=== PATIENT | female | born 1945 | race Caucasian/White ===

== ENCOUNTER → 2017-06-18 | Outpatient (CLI) | payer MEDICARE, OTHER ==
[~2017-06-18] MED LIST: REGADENOSON 0.4 MG/5 ML SYRINGE IV ONE
--- NOTE | 2017-06-18 11:28 | NM ---
EXAMINATION TYPE: NM stress lexiscan cardiolite DATE OF EXAM: 06/18/2017 COMPARISON: NONE HISTORY: I 10, hypertension TECHNIQUE: After the intravenous administration of 10.12 mCi Tc 99m Sestamibi - Cardiolite resting S PECT images acquired 45 minutes post injection. The patient received 0.4mg Lexiscan, 23.7 mCi Tc 99m Sestamibi - Stress images obtained [address] injection FINDINGS: Review of stress and rest SPECT images demonstrates some decreased uptake along the anterior wall on stress or rest images, some decreased uptake is noted along the septum towards the apex more so on st ress than on rest images. Gated analysis shows normal wall motion with an estimated left ventricular ejection fraction of 56 %. 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 Difficult to exclude natalie or infarct. A Yellow level critical message alert has been initiated for Jairon Brenner MD via the [employer] Critical Results System on 06/18/2017 11:25 AM. This message alert has been sent to Jairon Brenner MD via the preferences provided by the clinician for the receipt of Radiology Critical Findings. Message ID [id number].
--- NOTE | 2017-06-22 11:15 | EST ---
- Stress Test Note Stress Test Results/Findings: Exam Performed: NM stress lexiscan cardiolite Exam Date: 06/18/17 Reason for Exam: HTN Height: 5 ft 2 in Weight: 85.275 kg Protocol: Missy Scan Stage: na Duration of Exercise: na Resting Heart Rate: 61 Resting Blood Pressure: 109/53 Maximum Achieved Heart Rate: 88 Maximum Achieved Blood Pressure: 105/53 85% PMHR: na 100% PMHR: na METS: na Technologist Comment: Stress Test Results/Findings: This 71-year-old female is being tested for symptoms of chest pain and shortness of breath and also palpitations. Patient has history of hypertension , family history and smoking history. Based on EKG showed sinus rhythm with poor when necessary 20. QRS duration. A standard dose of Lexiscan was infused EKG showed nonspecific changes. Patient did not express any chest pain. Final impression #1. Negative Lexiscan stress test #2. Report of the nuclear images to be given by the radiologist. CHRIS
== END | disposition home or self-care (01) ==
LOC: RADNMMAIN 07:27
PROVIDERS: ATTEND Internal Medicine
DX: I10 Essential (primary) hypertension (principal)
CPT/HCPCS: 93017; 78452; A9500; J2785

== ENCOUNTER → 2017-06-23 | Outpatient (CLI) | payer MEDICARE, OTHER ==
[2017-06-23 11:53] LABS: Basophils % (A) 1 %; Eosinophils # (A) 0.1 k/uL (0-0.7); Eosinophils % (A) 2 %; HCT 44.9 % (34.0-46.0); Lymphocytes % (A) 19 %; MCH 30.5 pg (25.0-35.0); MCHC 33.5 g/dL (31.0-37.0); MCV 91.1 fL (80.0-100.0); Mean Platelet Volume 6.7; Monocytes # (A) 0.4 k/uL (0-1.0); Monocytes % (A) 7 %; Neutrophils # (A) 3.8 k/uL (1.3-7.7); Neutrophils % (A) 70 %; Platelet Count 253 k/uL (150-450); RBC 4.94 m/uL (3.80-5.40); RDW 12.5 % (11.5-15.5); WBC 5.4 k/uL (3.8-10.6)
[2017-06-23 12:10] LABS: Anion Gap 11 mmol/L; Blood Urea Nitrogen 14 mg/dL (7-17); Carbon Dioxide 33 mmol/L (22-30); Chloride 93 mmol/L (98-107); Potassium 3.1 mmol/L (3.5-5.1); Sodium 137 mmol/L (137-145)
== END | disposition home or self-care (01) ==
LOC: LABPAT 11:02
PROVIDERS: ATTEND Internal Medicine Cardiovascular Disease
DX: Z01.812 Encounter for preprocedural laboratory examination (principal); R07.9 Chest pain, unspecified
CPT/HCPCS: 36415; 80051; 82565; 84520; 85025; 85027

== ENCOUNTER 2017-06-25 07:23 | Day surgery (SDC) | payer MEDICARE, OTHER ==
[~2017-06-25 07:23] MED LIST changes: +ALPRAZolam 0.25 MG TAB PO PRN; +ALPRAZolam 0.5 MG TAB PO PRN; +ASPIRIN 325 MG TAB PO STA; +ATORVASTATIN 80 MG TAB PO STA; +NITROGLYCERIN SL TABS 0.4 MG TAB SUBLINGUAL PRN; -REGADENOSON 0.4 MG/5 ML SYRINGE IV ONE; +SODIUM CHLORIDE 0.9% 1,000 ML in EMPTY BAG 1 BAG IV ONE
[2017-06-25] MEDS ORDERED: ASPIRIN 81 MG ONE (07:45)
[2017-06-25 08:01] VITALS: TEMP 97.8
[2017-06-25] MEDS ORDERED: LIDOCAINE 2% INJ 20 MG/ML (20 ML MDV) ONE ×2 (08:41→08:42)
[2017-06-25] MEDS ORDERED: MIDAZOLAM 2 MG/2 ML VIAL ONE (08:41)
[2017-06-25] MEDS ORDERED: fentaNYL (PF) 50 MCG/ML 2 ML AMP ONE (08:42)
[2017-06-25] MEDS ORDERED: HEPARIN SODIUM 1,000 UN/ML (10ML VL) ONE (08:42)
[2017-06-25] MEDS ORDERED: fentaNYL (PF) 50 MCG/ML 2 ML AMP IV ONE (09:15)
[2017-06-25] MEDS ORDERED: MIDAZOLAM 2 MG/2 ML VIAL IV ONE (09:16)
[2017-06-25] MEDS: POTASSIUM CHLORIDE 10 MEQ in SODIUM CHLORIDE 0.9% 100 ML IVPB SCH ×2 (09:23→10:30)
[2017-06-25] MEDS ORDERED: LIDOCAINE 2% INJ 20 MG/ML SQ ONE (09:24)
[2017-06-25] MEDS ORDERED: VERAPAMIL SYRINGE (5 MG/10 ML) INTRAARTER ONE (09:28)
[2017-06-25] MEDS ORDERED: HEPARIN SODIUM 1,000 UN/ML (10ML VL) IV ONE (09:29)
[2017-06-25] MEDS ORDERED: IOHEXOL 350 MG/ML 125ML BOTTLE INJ ONE (09:43)
[2017-06-25] MEDS ORDERED: RX INFO: IV CONTRAST WAS GIVEN 1 EACH MISC MISCELLANE PRN (09:59)
[2017-06-25] MEDS ORDERED: SODIUM CHLORIDE 0.9% 1,000 ML IV SCH (10:00)
--- NOTE | 2017-06-25 10:09 | P.PCN ---
Date of Procedure: 06/25/17 Preoperative Diagnosis: Chest pain and positive stress test Postoperative Diagnosis: Mild diffuse coronary artery disease without any critical lesions Procedure(s) Performed: Left heart catheterization without left ventriculography Description of Procedure: HISTORY: This is a 71-year-old female with history of hypertension, family history of ischemic heart disease and also history of smoking who has been having intermittent chest pain. Patient had nuclear stress test that was reported as showing possible ischemia in the anterior wall and possible previous VT. Patient is advised to have a cardiac catheterization for definitive diagnosis. CONSENT:I have discussed the risks, benefits and alternative therapies for the above-mentioned procedure and for both sedation/analgesia as well as necessary blood product administration, if indicated, as they pertain to this patient. The patient has indicated understanding and acceptance of the risks and procedures discussed. PROCEDURE: Patient was brought to the lab in a fasting state. Patient was given some IV sedation. The right wrist is infiltrated with lidocaine and right radial artery was entered using Seldinger technique. A 6-Bengali catheter was left in place and selective coronary arteriography was performed. Patient tolerated the procedure well. TR band was applied for hemostasis. No immediate complications were noted and patient was transferred to [facility] in a stable condition Conscious Sedation: Versed 1 mg Fentanyl 50 g Duration 28minutes HEMODYNAMICS: The aortic pressure is 130/70. Left ankle end-diastolic pressures 5-10. There was no gradient across the aortic valve SELECTIVE CORONARY ARTERIOGRAPHY: LEFT MAIN: Short and divides into left anterior descending and the left circumflex coronary artery immediately THE LEFT ANTERIOR DESCENDING CORONARY ARTERY: This is a moderate caliber vessel with calcification and mild stenosis in the midportion with 30-40% stenosis. Rest of the vessel is free of occlusive disease THE LEFT CIRCUMFLEX AND IS CORONARY ARTERY:. This is a moderate caliber vessel giving rise to good-sized OM branch which has 2 divisions. The circumflex coronary artery has mild plaque noted any significant focal lesions THE RIGHT CORONARY ARTERY: Right coronary artery is also good caliber vessel and dominant. It shows mild calcification and mild intimal plaque in the midportion without any critical lesions LEFT VENTRICULOGRAPHY: Not performed FINAL IMPRESSION:. Mild diffuse coronary artery disease with calcification in the 30-40% lesion in the mid LAD. No critical lesions were noted PLAN:. Maximal medical therapy and risk factor modification PROGNOSIS: Good
[2017-06-25] MEDS ORDERED: POTASSIUM CHLORIDE ER 20 MEQ TAB.ER PO STA (10:11)
[2017-06-25 10:58] VITALS: RESP 18
[2017-06-25 10:59] VITALS: BP 129/79; PULSE 62
== END 2017-06-25 14:05 | disposition home or self-care (01) ==
LOC: CATHCVL 07:23
PROVIDERS: ATTEND Internal Medicine Cardiovascular Disease
DX: R07.9 Chest pain, unspecified (principal); R94.39 Abnormal result of other cardiovascular function study; I25.10 Atherosclerotic heart disease of native coronary artery without angina pectoris; I10 Essential (primary) hypertension; J45.909 Unspecified asthma, uncomplicated; Z82.49 Family history of ischemic heart disease and other diseases of the circulatory system; Z88.5 Allergy status to narcotic agent; Z87.891 Personal history of nicotine dependence; Z79.82 Long term (current) use of aspirin; Z79.890 Hormone replacement therapy; Z79.899 Other long term (current) drug therapy
CPT/HCPCS: 93458; 84132; C1769 ×3; C1894; J2001; J2250; J3480; J3010; J1644; Q9967

== ENCOUNTER → 2018-11-22 | Outpatient (CLI) | payer MEDICARE, OTHER ==
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
--- NOTE | 2018-11-24 12:21 | MM ---
Reason for exam: screening (asymptomatic). Last mammogram was performed 1 year and 9 months ago. History: Patient history of other cancer. Took hormonal contraceptives for 8 years beginning at age 21. Physical Findings: A clinical breast exam by your physician is recommended on an annual basis and results should be correlated with mammographic findings. MG 3D Screening Mammo W/Cad Bilateral CC and MLO view(s) were taken. Prior study comparison: February 08, 2017, bilateral MG 3d screening mammo w/cad. May 18, 2011, bilateral digital screening mammo w/CAD. There are scattered fibroglandular densities. There is chronic nodularity bilaterally. No significant changes when compared with prior studies. ASSESSMENT: Benign, BI-RAD 2 RECOMMENDATION: Routine screening mammogram of both breasts in 1 year.
== END | disposition home or self-care (01) ==
LOC: RADMAMWWP 14:17
PROVIDERS: ATTEND Internal Medicine
DX: Z12.31 Encounter for screening mammogram for malignant neoplasm of breast (principal); M81.0 Age-related osteoporosis without current pathological fracture
CPT/HCPCS: 77063; 77067; 77080

== ENCOUNTER → 2019-11-16 | Outpatient (CLI) | payer MEDICARE, OTHER ==
--- NOTE | 2019-11-16 11:59 | XR ---
EXAMINATION TYPE: XR chest 2V DATE OF EXAM: 11/16/2019 COMPARISON: NONE TECHNIQUE: PA and lateral views submitted. HISTORY: Shortness of breath FINDINGS: The lungs are clear and there is no pneumothorax, pleural effusion, or focal pneumonia. Calcified g ranuloma in the left midlung suspected. Atherosclerotic changes aorta. There is hypertrophic and dege nerative changes spine. Surgical clips in the abdomen noted. Subsegmental linear changes right lung b ase. IMPRESSION: 1. Findings suggest COPD with right basilar atelectasis favored over pneumonia. 2. There is a 2 small nodules within the left upper lobe the largest measuring 5 mm felt to be most t ypical of granuloma. CT scan of the chest could be obtained for confirmation.
== END | disposition home or self-care (01) ==
LOC: RADXRMAIN 11:15
PROVIDERS: ATTEND Internal Medicine
DX: R91.8 Other nonspecific abnormal finding of lung field (principal); J84.10 Pulmonary fibrosis, unspecified
CPT/HCPCS: 71046

== ENCOUNTER → 2019-11-23 | Outpatient (CLI) | payer MEDICARE, OTHER ==
[~2019-11-23] MED LIST changes: -ALPRAZolam 0.25 MG TAB PO PRN; -ALPRAZolam 0.5 MG TAB PO PRN; -ASPIRIN 325 MG TAB PO STA; -ATORVASTATIN 80 MG TAB PO STA; +DOBUTamine DRIP for NUC MED 500 MG in DEXTROSE/WATER 1 250ML.BAG IV ONE; -NITROGLYCERIN SL TABS 0.4 MG TAB SUBLINGUAL PRN; -SODIUM CHLORIDE 0.9% 1,000 ML in EMPTY BAG 1 BAG IV ONE
--- NOTE | 2019-11-23 13:10 | ECHOS ---
STRESS ECHOCARDIOGRAM LUMASON: Vial INDICATIONS: Chest pain, short of breath. MEDICATIONS: BASELINE HEART RATE: 55 BASELINE BLOOD PRESSURE: 143/65 MAXIMUM HEART RATE: 132 MAXIMUM BLOOD PRESSURE: 161/58 85% MPHR: 123 100% MPHR: 145 METS: MAXIMUM STAGE REACHED: TOTAL EXERCISE TIME: CLINICAL INFORMATION: Baseline EKG shows sinus rhythm with poor R-wave progression. Patient was given intravenous dobutamine over a period of 9 minutes as per protocol, achieving 85% of predicted maximal heart rate without chest pain. At peak dobutamine infusion, there was [address]-segment depression noted in the inferolateral leads. Baseline echo was technically suboptimal secondary to poor echo windows. Contrast was injected and has endocardial visualization. Baseline LV function and wall motion appear normal. Post dobutamine infusion there is normal hyperdynamic response of all segments of myocardium noted. CONCLUSION: 1. Abnormal stress test by EKG criteria. 2. Negative dobutamine echo. MMABYRONL / IJN: [id number] /
== END | disposition home or self-care (01) ==
LOC: RADNMMAIN 08:49
PROVIDERS: ATTEND Internal Medicine
DX: R06.09 Other forms of dyspnea (principal); R94.31 Abnormal electrocardiogram [ECG] [EKG]
CPT/HCPCS: C8930; J1250; Q9950; 93351

== ENCOUNTER → 2020-01-12 | Outpatient (CLI) | payer MEDICARE, OTHER ==
--- NOTE | 2020-01-15 09:43 | MM ---
Reason for exam: screening (asymptomatic). Last mammogram was performed 1 year and 2 months ago. History: Patient has history of other cancer at age 66. Took hormonal contraceptives for 8 years beginning at age 21. Physical Findings: A clinical breast exam by your physician is recommended on an annual basis and results should be correlated with mammographic findings. MG 3D Screening Mammo W/Cad Bilateral CC and MLO view(s) were taken. Prior study comparison: November 22, 2018, bilateral MG 3d screening mammo w/cad. February 08, 2017, bilateral MG 3d screening mammo w/cad. There are scattered fibroglandular densities. There is no discrete abnormality. No significant changes when compared with prior studies. ASSESSMENT: Negative, BI-RAD 1 RECOMMENDATION: Routine screening mammogram of both breasts in 1 year.
== END | disposition home or self-care (01) ==
LOC: RADMAMWWP 09:58
PROVIDERS: ATTEND Internal Medicine
DX: Z12.31 Encounter for screening mammogram for malignant neoplasm of breast (principal)
CPT/HCPCS: 77063; 77067

== ENCOUNTER → 2020-02-19 | Outpatient (CLI) | payer MEDICARE, OTHER | END | disposition home or self-care (01) | LOC: LABWHC1 12:54 | PROVIDERS: ATTEND Internal Medicine | DX: Z03.818 Encounter for observation for suspected exposure to other biological agents ruled out (principal) | CPT/HCPCS: U0003; C9803 ==

== ENCOUNTER 2020-05-15 19:23 | Inpatient (IN) | payer OTHER, MEDICARE ==
[2020-05-15 19:29] LABS: Glucose,Whole Blood 157 mg/dL (75-99)
[2020-05-15] MEDS ORDERED: MORPHINE SULFATE 4 MG/ML SYRINGE IVP STA ×2 (19:41→20:35)
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
[2020-05-15] MEDS ORDERED: ONDANSETRON 4 MG/2 ML VIAL IVP STA (19:45)
[2020-05-15 19:48] LABS: Anisocytosis Slight; Basophils # (A) 0.1 k/uL (0-0.2); Basophils % (A) 1 %; Eosinophils # (A) 0.4 k/uL (0-0.7); Eosinophils % (A) 5 %; HCT 43.9 % (34.0-46.0); HGB 13.5 gm/dL (11.4-16.0); Hypochromasia Marked; Lymphocytes # (A) 1.6 k/uL (1.0-4.8); Lymphocytes % (A) 19 %; MCH 31.4 pg (25.0-35.0); MCHC 30.9 g/dL (31.0-37.0); MCV 101.9 fL (80.0-100.0); Macrocytosis Slight; Mean Platelet Volume 6.7; Monocytes # (A) 0.3 k/uL (0-1.0); Monocytes % (A) 4 %; Neutrophils # (A) 6.2 k/uL (1.3-7.7); Neutrophils % (A) 71 %; Platelet Count 177 k/uL (150-450); Poikilocytosis Moderate; RBC 4.31 m/uL (3.80-5.40); RDW 16.3 % (11.5-15.5); WBC 8.8 k/uL (3.8-10.6)
[2020-05-15 19:58] LABS: ALT 28 U/L (4-34); AST 40 U/L (14-36); African American GFR (CKD) 73 (>60 ml/min/1.73 sqM); Albumin 3.9 g/dL (3.5-5.0); Alcohol <10 mg/dL; Alkaline Phosphatase 92 U/L (38-126); Anion Gap 9 mmol/L; Blood Urea Nitrogen 24 mg/dL (7-17); Calcium 9.3 mg/dL (8.4-10.2); Carbon Dioxide 31 mmol/L (22-30); Chloride 100 mmol/L (98-107); Glucose 123 mg/dL (74-99); Non-African American GFR(CKD) 63 (>60 ml/min/1.73 sqM); Potassium 3.8 mmol/L (3.5-5.1); Sodium 140 mmol/L (137-145); Total Bilirubin 0.8 mg/dL (0.2-1.3); Total Protein 6.7 g/dL (6.3-8.2)
[2020-05-15 20:01] LABS: Prothrombin Time 10.3 sec (9.0-12.0)
[2020-05-15 20:08] LABS: Partial Thromboplastin Time 22.3 sec (22.0-30.0)
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
[2020-05-15] MEDS ORDERED: ACETAMINOPHEN TAB 325 MG TAB PO PRN (21:16)
[2020-05-15] MEDS ORDERED: LORazepam 0.5 MG TAB PO PRN (21:16)
[2020-05-15] MEDS ORDERED: ONDANSETRON 4 MG/2 ML VIAL IVP PRN (21:16)
[2020-05-15] MEDS ORDERED: LORazepam 2 MG/ML INJ IV PRN (21:16)
[2020-05-15] MEDS ORDERED: MORPHINE SULFATE 4 MG/ML SYRINGE IV PRN (21:16)
[2020-05-15] MEDS ORDERED: NALOXONE 0.4 MG/ML 1 ML VIAL IV PRN (21:16)
[2020-05-15] MEDS: PANTOPRAZOLE 40 MG/10 ML VIAL IV SCH (21:31)
[2020-05-15] MEDS: SODIUM CHLORIDE 0.9% 1,000 ML IV SCH (21:31)
[2020-05-15 22:13] LABS: Appearance,Urine Clear (Clear); Bilirubin,Urine Negative (Negative); Blood,Urine Negative (Negative); Color,Urine Light Yellow; Glucose,Urine (UA) Negative (Negative); Ketones,Urine Negative (Negative); Leukocyte Esterase,Urine Negative (Negative); Nitrite,Urine Negative (Negative); Protein,Urine Negative (Negative); Urobilinogen,Urine <2.0 mg/dL (<2.0)
[2020-05-15 22:30] LABS: Amphetamine Screen,Urine Not Detected (NotDetected); Barbiturate Screen,Urine Not Detected (NotDetected); Benzodiazepines Screen,Urine Detected (NotDetected); Cocaine Screen,Urine Not Detected (NotDetected); Methadone Screen, Urine Not Detected (NotDetected); Opiate Screen,Urine Detected (NotDetected); Oxycodone Screen, Urine Not Detected (NotDetected); Phencyclidine Screen,Urine Not Detected (NotDetected); Tricyclic Antidepressant,Urine Not Detected (NotDetected); Urn Cannabinoid Scrn Not Detected (NotDetected)
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
[2020-05-16] MEDS: LEVOTHYROXINE 100 MCG TAB PO SCH (05:47)
[2020-05-16] MEDS ORDERED: HYDROcodone/APAP 7.5-325MG 1 EACH TAB PO PRN (08:16)
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
[2020-05-16] MEDS: ONDANSETRON 4 MG/2 ML VIAL IVP PRN (08:53)
[2020-05-16] MEDS: HYDROcodone/APAP 10-325MG 1 EACH TAB PO PRN ×2 (08:53→16:12)
[2020-05-16] MEDS: ASPIRIN 81 MG PO SCH (09:03)
[2020-05-16] MEDS: POTASSIUM CHLORIDE ER 10 MEQ TAB.ER.PRT PO SCH ×2 (09:04→16:13)
[2020-05-16] MEDS: SERTRALINE 50 MG TAB PO SCH (09:05)
[2020-05-16] MEDS: ENOXAPARIN 40 MG/0.4 ML SYRINGE SQ SCH (09:07)
[2020-05-16] MEDS: PANTOPRAZOLE 40 MG/10 ML VIAL IV SCH (09:08)
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
[2020-05-16] MEDS: MORPHINE SULFATE 4 MG/ML SYRINGE IV PRN ×2 (11:04→17:42)
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
[2020-05-16] MEDS: ALPRAZolam 0.5 MG TAB PO SCH (23:25)
[2020-05-16] MEDS: SODIUM CHLORIDE 0.9% 1,000 ML IV SCH (23:26)
[2020-05-17] MEDS: POTASSIUM CHLORIDE ER 10 MEQ TAB.ER.PRT PO SCH ×4 (00:15→20:58)
[2020-05-17] MEDS: KETOROLAC 15 MG/ML 1 ML VIAL IVP PRN ×2 (01:55→09:32)
[2020-05-17] MEDS: HYDROcodone/APAP 10-325MG 1 EACH TAB PO PRN ×3 (01:56→19:47)
[2020-05-17] MEDS: LEVOTHYROXINE 75 MCG TAB PO SCH (05:49)
--- NOTE | 2020-05-17 08:08 | P.PN ---
Subjective Progress Note Date: 05/17/20 Principal diagnosis: Left iliac fracture/right pubic rami fracture/sacral fracture/acetabular avulsion Patient notes moderate pelvic pain. She is requiring oral analgesics. Objective - Vital Signs Vital signs: Vital Signs Temp 97.9 F 05/17/20 06:55 Pulse 72 05/17/20 06:55 Resp 16 05/17/20 06:55 BP 111/62 05/17/20 06:55 Pulse Ox 97 05/17/20 06:55 Intake & Output 05/16/20 05/17/20 05/17/20 18:59 06:59 18:59 Output Total 600 Balance -600 Output: Urine 600 Other: Voiding Method Indwelling Catheter Indwelling Catheter # Voids 400 - Exam Moderate pain with passive motion left hip Tender right pubic rami Homans negative bilaterally Distal neurovascular intact to the lower extremities Pelvis stable to external rotation stress - Constitutional General appearance: Present: mild distress (Alert and oriented 4) - Labs CBC & Chem 7: 05/15/20 19:25 05/15/20 19:25 Assessment and Plan Assessment: Left shoulder fracture/right pubic rami fracture/sacral compression fracture/left acetabular avulsion Plan: Continue analgesia. Encourage mobilization with therapy and a walker. Discontinue Allison. Continue to monitor. Time with Patient: Less than 30
[2020-05-17] MEDS ORDERED: MORPHINE SULFATE 4 MG/ML SYRINGE IVP PRN (08:17)
[2020-05-17] MEDS: ONDANSETRON 4 MG/2 ML VIAL IVP PRN (08:30)
[2020-05-17] MEDS: ASPIRIN 81 MG PO SCH (09:19)
[2020-05-17] MEDS: ENOXAPARIN 40 MG/0.4 ML SYRINGE SQ SCH (09:20)
[2020-05-17] MEDS: PANTOPRAZOLE 40 MG/10 ML VIAL IV SCH (09:21)
[2020-05-17] MEDS: SERTRALINE 50 MG TAB PO SCH (09:22)
[2020-05-17] MEDS ORDERED: polyethylene glycoL 3350 17 GM POWD.PACK PO STA (09:31)
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
[2020-05-17 12:15] LABS: HCT 35.2 % (34.0-46.0); HGB 11.4 gm/dL (11.4-16.0); MCH 32.3 pg (25.0-35.0); MCHC 32.5 g/dL (31.0-37.0); MCV 99.4 fL (80.0-100.0); Mean Platelet Volume 7.5; Platelet Count 119 k/uL (150-450); RBC 3.54 m/uL (3.80-5.40); RDW 13.5 % (11.5-15.5); WBC 6.3 k/uL (3.8-10.6)
[2020-05-17 12:23] LABS: Potassium 3.5 mmol/L (3.5-5.1)
[2020-05-17 12:24] LABS: African American GFR (CKD) >90 (>60 ml/min/1.73 sqM); Anion Gap 4 mmol/L; Blood Urea Nitrogen 15 mg/dL (7-17); Calcium 8.6 mg/dL (8.4-10.2); Carbon Dioxide 31 mmol/L (22-30); Chloride 97 mmol/L (98-107); Glucose 113 mg/dL (74-99); Non-African American GFR(CKD) >90 (>60 ml/min/1.73 sqM); Sodium 132 mmol/L (137-145)
[2020-05-17] MEDS: ALPRAZolam 0.5 MG TAB PO SCH (20:59)
[2020-05-17] MEDS: SODIUM CHLORIDE 0.9% 1,000 ML IV SCH (22:49)
[2020-05-18] MEDS: LEVOTHYROXINE 75 MCG TAB PO SCH (06:05)
[2020-05-18] MEDS: HYDROcodone/APAP 10-325MG 1 EACH TAB PO PRN ×4 (06:08→22:30)
--- NOTE | 2020-05-18 08:14 | P.PN ---
Subjective Progress Note Date: 05/18/20 Principal diagnosis: Right pubic rami/left ischial/left acetabular avulsion fractures Patient notes moderate right-sided pelvic pain. She has ambulated minimally. Objective - Vital Signs Vital signs: Vital Signs Temp 98.5 F 05/18/20 00:12 Pulse 78 05/18/20 00:12 Resp 18 05/18/20 00:12 BP 145/69 05/18/20 00:12 Pulse Ox 98 05/18/20 00:12 Intake & Output 05/17/20 05/18/20 05/18/20 18:59 06:59 18:59 Intake Total 780 Output Total 2200 Balance -1420 Intake: Intake, IV Titration 240 Amount Sodium Chloride 0.9% 1, 240 000 ml @ 20 mls/hr IV . Q24H [facility] Rx#:[id number] Oral 540 Output: Urine 2200 Other: Voiding Method Indwelling Catheter Indwelling Catheter - Exam Mild pain with passive motion left hip Tender right pubic rami Nontender sacroiliac joints and lumbar spine Homans negative bilateral lower extremities Distal neurovascular intact bilateral lower extremities - Constitutional General appearance: Present: no acute distress - Labs CBC & Chem 7: 05/17/20 11:50 05/17/20 11:50 Labs: Abnormal Lab Results - Last 24 Hours (Table) 05/17/20 05/17/20 Range/Units 11:50 11:50 RBC 3.54 L (3.80-5.40) m/uL Plt Count 119 L (150-450) k/uL Sodium 132 L (137-145) mmol/L Chloride 97 L (98-107) mmol/L Carbon Dioxide 31 H (22-30) mmol/L Glucose 113 H (74-99) mg/dL Assessment and Plan Assessment: Left shoulder fracture/right pubic rami fracture/sacral compression fracture /left acetabular avulsion Plan: Continue analgesia. Discontinue [place]. Continue therapy. Discharge planning. She may require subacute rehabilitation. Time with Patient: Less than 30
[2020-05-18] MEDS: KETOROLAC 15 MG/ML 1 ML VIAL IVP PRN ×2 (09:15→16:49)
[2020-05-18] MEDS: hydroCHLOROthiazide 12.5 MG CAP PO SCH (09:16)
[2020-05-18] MEDS: SERTRALINE 50 MG TAB PO SCH (09:16)
[2020-05-18] MEDS: PANTOPRAZOLE 40 MG TABLET PO SCH (09:16)
[2020-05-18] MEDS: POTASSIUM CHLORIDE ER 10 MEQ TAB.ER.PRT PO SCH ×3 (09:16→20:20)
[2020-05-18] MEDS: ENOXAPARIN 40 MG/0.4 ML SYRINGE SQ SCH (09:16)
[2020-05-18] MEDS: SENNOSIDES 8.6 MG TAB PO SCH (09:16)
[2020-05-18] MEDS: LEVOTHYROXINE 100 MCG TAB PO SCH (09:16)
[2020-05-18] MEDS: ASPIRIN 81 MG PO SCH (09:16)
[2020-05-18] MEDS ORDERED: polyethylene glycoL 3350 17 GM POWD.PACK PO STA (09:25)
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
[2020-05-18] MEDS: ALPRAZolam 0.5 MG TAB PO SCH (20:20)
[2020-05-18] MEDS: SODIUM CHLORIDE 0.9% 1,000 ML IV SCH (22:31)
[2020-05-19] MEDS: HYDROcodone/APAP 10-325MG 1 EACH TAB PO PRN ×3 (05:52→19:29)
[2020-05-19] MEDS: SENNOSIDES 8.6 MG TAB PO SCH (08:21)
[2020-05-19] MEDS: hydroCHLOROthiazide 12.5 MG CAP PO SCH (08:21)
[2020-05-19] MEDS: ASPIRIN 81 MG PO SCH (08:21)
[2020-05-19] MEDS: PANTOPRAZOLE 40 MG TABLET PO SCH (08:21)
[2020-05-19] MEDS: ENOXAPARIN 40 MG/0.4 ML SYRINGE SQ SCH (08:21)
[2020-05-19] MEDS: SERTRALINE 50 MG TAB PO SCH (08:21)
[2020-05-19] MEDS: POTASSIUM CHLORIDE ER 10 MEQ TAB.ER.PRT PO SCH ×2 (08:21→15:58)
[2020-05-19] MEDS: KETOROLAC 15 MG/ML 1 ML VIAL IVP PRN (08:23)
[2020-05-19 10:34] LABS: HCT 29.1 % (37.2-46.3); HGB 9.3 g/dL (12.0-15.0); MCH 32.1 pg (27.0-32.0); MCV 100.3 fL (80.0-97.0); Mean Platelet Volume 10.1 fL (9.5-12.2); Platelet Count 133 X 10*3/uL (140-440); RDW 13.4 % (11.5-14.5); WBC 4.53 X 10*3/uL (4.50-10.00)
--- NOTE | 2020-05-19 10:44 | P.PN ---
Subjective Progress Note Date: 05/19/20 Principal diagnosis: Left iliac fracture/right pubic rami fracture/sacral fracture/left hip acetabular avulsion Patient was evaluated today at bedside, she is resting in her hospital chair. She did get up with assistance today and utilize the walker. She notes improvement in her overall symptoms. Her biggest complaint at this time she hasn't had a bowel movement. I did discuss this with both nursing and internal medicine doctor today, they're working on this. Currently she denies any headaches, lightheadedness, chest pain, shortness of breath, nausea vomiting, fever or chills. Objective - Vital Signs Vital signs: Vital Signs Temp 98.3 F 05/19/20 07:53 Pulse 67 05/19/20 07:53 Resp 16 05/19/20 07:53 BP 111/51 05/19/20 07:53 Pulse Ox 94 L 05/19/20 07:53 Intake & Output 05/18/20 05/19/20 05/19/20 18:59 06:59 18:59 Intake Total 100 Output Total 2250 Balance -2250 100 Intake: Oral 100 Output: Urine 2250 Uretheral (Allison) 600 Other: Voiding Method Indwelling Catheter Bedside Commode Bedside Commode # Voids 1 1 - Exam Mild pain with passive motion left hip Tender right pubic rami Nontender sacroiliac joints and lumbar spine Homans negative bilateral lower extremities Distal neurovascular intact bilateral lower extremities - Labs CBC & Chem 7: 05/19/20 06:23 05/17/20 11:50 Labs: Abnormal Lab Results - Last 24 Hours (Table) 05/19/20 Range/Units 06:23 RBC 2.90 L (4.10-5.20) X 10*6/uL Hgb 9.3 L (12.0-15.0) g/dL Hct 29.1 L (37.2-46.3) % MCV 100.3 H (80.0-97.0) fL MCH 32.1 H (27.0-32.0) pg Plt Count 133 L (140-440) X 10*3/uL Assessment and Plan Assessment: Left iliac fracture Right pubic rami fracture Sacral fracture Left hip acetabular avulsion Plan: Pain control, continue with current regimen Continue physical therapy evaluation, recommending walker at all times with ambulation Patient is feeling much better after removal of the urinary catheter, I imagine she'll continue fill better after a bowel movement, we will continue to monitor this Medical recommendations GI and DVT prophylaxis per medical team Hopeful discharge to rehab tomorrow Time with Patient: Less than 30
[2020-05-19 11:03] LABS: African American GFR (CKD) 109.7 (60.0-200.0); Anion Gap 3.6 mmol/L (4.00-12.00); Calcium 8.4 mg/dL (8.7-10.3); Carbon Dioxide 32.4 mmol/L (21.6-31.8); Magnesium 1.7 mg/dL (1.5-2.4); Non-African American GFR(CKD) 94.7 (60.0-200.0); Potassium 4.2 mmol/L (3.5-5.5)
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
--- NOTE | 2020-05-19 12:19 | CT ---
1 lines and proximal EXAMINATION TYPE: CT abdomen pelvis wo con DATE OF EXAM: 05/19/2020 COMPARISON: 05/15/2020 00 HISTORY: Hgb decrease CT DLP: 687.7 mGycm Examination of the solid and hollow viscera is limited given the lack of contrast. FINDINGS: LUNG BASES: No evidence for nodule. No evidence for infiltrate. LIVER/GB: The gallbladder is unremarkable. No space-occupying hepatic lesion. PANCREAS: No pancreatic mass identified. No inflammatory process seen. SPLEEN: No evidence for splenomegaly. No intrasplenic lesions seen. ADRENALS: No adrenal nodules identified. No evidence for thickening. KIDNEYS: No evidence for renal mass. No nephrolithiasis. No hydronephrosis. There is urinary bladder wall thickening with the a focus of air identified within the anterior urinary bladder which may be f rom recent catheterization. Correlate clinically. BOWEL: Appendix has a normal appearance. No evidence of bowel obstruction. No inflammatory process. I ncreased attenuation within the small bowel mesentery unchanged from prior study may reflect a mesent lala panniculitis. Lymph nodes: No evidence for adenopathy greater than 1 cm. Abdominal aorta: Atheromatous changes seen. No evidence for aneurysm. Genital organs: No significant abnormality. Other: Again noted is mildly comminuted fracture involving the right superior pubic ramus and loss pu bis. There is fracture of the left inferior pubic ramus as well as of the left ischium extending into the anterior acetabular lip. Small chip fracture of the left mid sacrum is redemonstrated. No new fr actures identified at this time. No evidence for lumbar fracture. Mild presacral edema is seen. IMPRESSION: 1. Pelvic fractures are redemonstrated. No new fractures seen. Intra-axial evidence for hematoma alth ough there is mild presacral edema which has occurred in the interval. 2. Urinary bladder wall thickening. See above.
[2020-05-19 14:00] LABS: HCT 29.7 % (34.0-46.0); MCH 32.9 pg (25.0-35.0); MCHC 33.5 g/dL (31.0-37.0); MCV 98.3 fL (80.0-100.0); Platelet Count 132 k/uL (150-450); RBC 3.02 m/uL (3.80-5.40); RDW 13.7 % (11.5-15.5); WBC 4.6 k/uL (3.8-10.6)
[2020-05-19] MEDS ORDERED: NA PHOS,M-B/NA PHOS,DI-BA 133 ML ENEMA RECTAL STA (14:05)
[2020-05-19 14:14] LABS: HGB 9.9 gm/dL (11.4-16.0)
--- NOTE | 2020-05-19 16:37 | XR ---
EXAMINATION TYPE: XR chest 1V portable DATE OF EXAM: 05/19/2020 COMPARISON: 05/15/2020 HISTORY: Short of breath TECHNIQUE: FINDINGS: Heart is normal. Lungs are clear of infiltrate. Thoracic aorta is atheromatous. Costophreni c angles are clear. Bony thorax is intact. IMPRESSION: No active cardiopulmonary disease. Normal heart. No change.
[2020-05-20] MEDS: ALPRAZolam 0.5 MG TAB PO SCH (00:19)
[2020-05-20] MEDS: POTASSIUM CHLORIDE ER 10 MEQ TAB.ER.PRT PO SCH ×2 (00:19→09:02)
[2020-05-20] MEDS: HYDROcodone/APAP 10-325MG 1 EACH TAB PO PRN ×3 (00:19→11:45)
[2020-05-20] MEDS: LEVOTHYROXINE 100 MCG TAB PO SCH (05:37)
[2020-05-20 08:16] VITALS: BP 126/70; PULSE 68; RESP 16; TEMP 98.3
[2020-05-20] MEDS: PANTOPRAZOLE 40 MG TABLET PO SCH (09:01)
[2020-05-20] MEDS: hydroCHLOROthiazide 12.5 MG CAP PO SCH (09:02)
[2020-05-20] MEDS: ASPIRIN 81 MG PO SCH (09:02)
[2020-05-20] MEDS: SENNOSIDES 8.6 MG TAB PO SCH (09:02)
[2020-05-20] MEDS: SERTRALINE 50 MG TAB PO SCH (09:02)
[2020-05-20] MEDS: ENOXAPARIN 40 MG/0.4 ML SYRINGE SQ SCH (09:02)
[2020-05-20 09:07] LABS: HCT 27.7 % (37.2-46.3); MCH 32.5 pg (27.0-32.0); MCHC 32.5 g/dL (32.0-37.0); Mean Platelet Volume 9.6 fL (9.5-12.2); Platelet Count 152 X 10*3/uL (140-440); RBC 2.77 X 10*6/uL (4.10-5.20); RDW 13.4 % (11.5-14.5); WBC 3.71 X 10*3/uL (4.50-10.00)
[2020-05-20 09:53] LABS: African American GFR (CKD) 109.7 (60.0-200.0); Anion Gap 6.5 mmol/L (4.00-12.00); Calcium 8.5 mg/dL (8.7-10.3); Carbon Dioxide 31.5 mmol/L (21.6-31.8); Non-African American GFR(CKD) 94.7 (60.0-200.0); Potassium 4.1 mmol/L (3.5-5.5)
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
== END 2020-05-20 15:10 | DRG 536 ==
LOC: EC 19:23 → 4SSUR 21:16
PROVIDERS: ADMIT Internal Medicine; ATTEND Internal Medicine
DX: S32.82XA Multiple fractures of pelvis without disruption of pelvic ring, initial encounter for closed fracture (principal); D62 Acute posthemorrhagic anemia; E87.1 Hypo-osmolality and hyponatremia; E03.9 Hypothyroidism, unspecified; D69.6 Thrombocytopenia, unspecified; F41.9 Anxiety disorder, unspecified; K21.9 Gastro-esophageal reflux disease without esophagitis; Z20.822 Contact with and (suspected) exposure to COVID-19; J43.9 Emphysema, unspecified; I10 Essential (primary) hypertension; K59.00 Constipation, unspecified; Z88.5 Allergy status to narcotic agent; Z91.010 Allergy to peanuts; Z90.710 Acquired absence of both cervix and uterus; Z87.891 Personal history of nicotine dependence; Z79.899 Other long term (current) drug therapy; Z79.82 Long term (current) use of aspirin; V89.2XXA Person injured in unspecified motor-vehicle accident, traffic, initial encounter; Y92.410 Unspecified street and highway as the place of occurrence of the external cause; Z98.49 Cataract extraction status, unspecified eye
CPT/HCPCS: 36415; 70450; 71045; 71260; 72125; 72170; 74176; 74177; 80048; 80053; 80306; 80320; 81003; 83735; 84484; 85025; 85027; 85610; 85730; 86850; 86900; 86901; 87635; 93005; 94760; 96374; 96375; 96376; 99285

== ENCOUNTER → 2020-08-08 | Outpatient (CLI) | payer MEDICARE, OTHER ==
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
== END | disposition home or self-care (01) ==
LOC: RADXRMAIN 10:03
PROVIDERS: ATTEND Internal Medicine
DX: M51.36 Other intervertebral disc degeneration, lumbar region (principal); M47.816 Spondylosis without myelopathy or radiculopathy, lumbar region; M41.86 Other forms of scoliosis, lumbar region; M51.34 Other intervertebral disc degeneration, thoracic region; M41.84 Other forms of scoliosis, thoracic region; M85.88 Other specified disorders of bone density and structure, other site
CPT/HCPCS: 72070; 72100

== ENCOUNTER 2020-08-24 12:10 | Emergency (ER) | payer MEDICARE, OTHER ==
[2020-08-24 12:19] VITALS: RESP 18
--- NOTE | 2020-08-24 13:06 | ED ---
General Adult HPI - General Chief complaint: Fall Stated complaint: fall Time Seen by Provider: 08/24/20 12:31 Source: patient, EMS Mode of arrival: EMS Limitations: no limitations - History of Present Illness Initial comments: 75-year-old female with a past medical history of GERD, hypertension, COPD presents to the emergency room for chief complaint of fall. Patient reports she went to bean picker a piece of dirt off of her kitchen floor when she lost her balance when bending over and fell hitting the right side of her face against the ground. Patient did not lose consciousness. She does not take blood thinners. Patient does not have any other injuries. She was not complaining of pain in the neck prior to arrival.Patient has no other complaints at this time including shortness of breath, chest pain, abdominal pain, nausea or vomiting, headache, or visual changes. - Related Data Home Medications Medication Instructions Recorded Confirmed Aspirin [Adult Low Dose Aspirin EC] 81 mg PO DAILY 06/23/17 08/24/20 Levothyroxine Sodium 100 mcg PO SUTUTHSA 06/23/17 08/24/20 Sertraline [Zoloft] 50 mg PO DAILY 06/23/17 08/24/20 hydroCHLOROthiazide 12.5 mg PO DAILY 06/23/17 08/24/20 Cholecalciferol [Vitamin D3 (25 25 mcg PO DAILY 05/15/20 08/24/20 Mcg = 1000 Iu)] Cyanocobalamin (Vitamin B-12) 2,500 mcg PO DAILY 05/15/20 08/24/20 [Vitamin B-12] Levothyroxine Sodium 150 mcg PO MOWEFR 05/15/20 08/24/20 Omeprazole 20 mg PO DAILY 05/15/20 08/24/20 Potassium Chloride ER [K-Dur 10] 10 meq PO BID 05/15/20 08/24/20 Zinc 50 mg PO DAILY 05/15/20 08/24/20 ALPRAZolam [Xanax] 0.25 mg PO HS 08/24/20 08/24/20 Allergies Allergy/AdvReac Type Severity Reaction Status Date / Time peanut Allergy Anaphylaxis Verified 08/24/20 13:19 codeine AdvReac Severe Abdominal Verified 08/24/20 13:19 Pain Review of Systems ROS Statement: Those systems with pertinent positive or pertinent negative responses have been documented in the HPI. ROS Other: All systems not noted in ROS Statement are negative. Past Medical History Past Medical History: COPD, GERD/Reflux, Hypertension Additional Past Medical History / Comment(s): emphysema History of Any Multi-Drug Resistant Organisms: None Reported Past Surgical History: Hysterectomy Additional Past Surgical History / Comment(s): cataracts removal Additional Past Anesthesia/Blood Transfusion Reaction / Comment(s): states she sometimes has a hard time coming out of surgery Past Psychological History: No Psychological Hx Reported Smoking Status: Former smoker Past Alcohol Use History: None Reported Past Drug Use History: None Reported General Exam Limitations: no limitations General appearance: alert, in no apparent distress Head exam: Present: atraumatic, normocephalic, normal inspection Eye exam: Present: PERRL, EOMI, periorbital swelling (Ecchymosis and contusion noted to the right eyebrow.). Absent: scleral icterus, conjunctival injection ENT exam: Present: normal exam, mucous membranes moist Neck exam: Present: other (c-collar placed). Absent: tenderness Respiratory exam: Present: normal lung sounds bilaterally. Absent: respiratory distress, wheezes, rales, rhonchi, stridor Cardiovascular Exam: Present: regular rate, normal rhythm, normal heart sounds. Absent: systolic murmur, diastolic murmur, rubs, gallop, clicks GI/Abdominal exam: Present: soft, normal bowel sounds. Absent: distended, tenderness, guarding, rebound, rigid Course Vital Signs 08/24/20 12:12 Temperature 98.0 F Pulse Rate 71 Respiratory 18 Rate Blood Pressure 182/72 O2 Sat by Pulse 96 Oximetry Medical Decision Making - Medical Decision Making Vitals are stable. Patient hypertensive, does have a history of hypertension and is anxious upon arrival. Patient is a contusion noted to the right forehead. No blood thinners. No loss of consciousness. Soft tissue hematoma overlying the right frontal bone. CT brain that is unremarkable. No acute cranial hemorrhage. CT cervical spine shows degenerative disc disease. At this time patient discharged to follow-up with primary care. She will return to the emergency room. Disposition Clinical Impression: Contusion, Head injury Disposition: HOME SELF-CARE Condition: Good Instructions (If sedation given, give patient instructions): Head Injury (ED), Contusion in Adults (ED) Additional Instructions: Take Tylenol for pain. Please follow-up with your doctor in one to 2 days. Return to the emergency room for any worsening symptoms. Is patient prescribed a controlled substance at d/c from ED?: No Referrals: Froy Portillo MD [Primary Care Provider] - 1-2 days Time of Disposition: 13:43
--- NOTE | 2020-08-24 13:33 | CT ---
EXAMINATION TYPE: CT orbits wo con DATE OF EXAM: 08/24/2020 COMPARISON: None HISTORY: Pain CT DLP: 574.8 mGycm Automated exposure control for dose reduction was used. FINDINGS: Intraorbital structures are symmetric. Visualized intracranial structures are symmetric. There is a s oft tissue hematoma overlying the right frontal bone. Calvarium grossly intact. Orbits intact. Sinuse s clear. IMPRESSION: SOFT TISSUE HEMATOMA OVERLYING THE RIGHT FRONTAL BONE.
--- NOTE | 2020-08-24 13:38 | CT ---
EXAMINATION TYPE: CT brain nirali wo con DATE OF EXAM: 08/24/2020 COMPARISON: 05/15/2020 HISTORY: Pain CT DLP: 829.8 mGycm Automated exposure control for dose reduction was used. TECHNIQUE: CT scan of the head and cervical spine are performed without contrast. FINDINGS: There is no acute intracranial hemorrhage, mass effect, or midline shift identified. The ventricles and sulci are within normal limits in size. The globes are intact and the visualized sin uses are clear. Soft tissue hematoma overlying the right frontal bone. Low-attenuation the white marguerite er nonspecific but most typical of remote ischemic white matter change. Intracranial atherosclerotic changes. Cessna spinal canal nondiagnostic due to resolution artifact. There is vascular calcifications of the carotid arteries correlate clinically. Hypertrophic and degenerative changes of the cervical spine w ith multilevel foraminal encroachment. Suspect canal stenosis. Recommend follow-up MRI. IMPRESSION: 1. Soft tissue hematoma overlying the right frontal bone. 2. Multilevel degenerative disc disease and facet arthropathy.
[2020-08-24 14:14] VITALS: BP 143/68; PULSE 60; TEMP 97.5
== END 2020-08-24 14:19 | disposition home or self-care (01) ==
LOC: EC 12:10
DX: S00.11XA Contusion of right eyelid and periocular area, initial encounter (principal); S09.90XA Unspecified injury of head, initial encounter; I10 Essential (primary) hypertension; J44.9 Chronic obstructive pulmonary disease, unspecified; K21.9 Gastro-esophageal reflux disease without esophagitis; Z79.82 Long term (current) use of aspirin; Z87.891 Personal history of nicotine dependence; Z90.710 Acquired absence of both cervix and uterus; W18.30XA Fall on same level, unspecified, initial encounter; Y92.090 Kitchen in other non-institutional residence as the place of occurrence of the external cause
CPT/HCPCS: 70450; 70480; 72125; 99284

== ENCOUNTER → 2021-04-14 | Outpatient (CLI) | payer MEDICARE, OTHER ==
--- NOTE | 2021-04-14 08:38 | CT ---
EXAMINATION TYPE: CT brain wo con DATE OF EXAM: 04/14/2021 COMPARISON: 08/24/2020 HISTORY: 75-year-old female R42, dizziness TECHNIQUE: Examination was done in axial plane without intravenous contrast. Coronal and sagittal r econstructions performed. CT DLP: 1003.2 mGycm Automated exposure control for dose reduction was used. FINDINGS: There is no evidence of acute intracranial hemorrhage, acute ischemic changes, mass, mass-effect, or extra-axial fluid collection. There is no effacement of cerebral sulci or basal subarachnoid cister ns. There is no hydrocephalus. There is no midline shift. Palm-white matter distinction is preserv ed. Atherosclerotic calcifications within the carotid siphons and especially within the proximal V4 segme nt left vertebral artery. Paranasal sinuses and mastoid air cells well pneumatized. Orbits and globes are intact. There may be some minimal residual soft tissue swelling/scarring overlying the right supraorbital region compared to 08/24/2020. IMPRESSION: No acute intracranial abnormality seen.
--- NOTE | 2021-04-14 08:57 | US ---
EXAMINATION TYPE: US carotid duplex BILAT DATE OF EXAM: 04/14/2021 COMPARISON: NONE CLINICAL HISTORY: DIZZINESS, R42. EXAM MEASUREMENTS: RIGHT: Peak Systolic Velocity (PSV) cm/sec ----- Right CCA: 73.9 ----- Right ICA: 86.5 ----- Right ECA: 90.8 ICA/CCA ratio: 1.2 RIGHT: End Diastole cm/sec ----- Right CCA: 22.2 ----- Right ICA: 28.5 ----- Right ECA: 19.3 LEFT: Peak Systolic Velocity (PSV) cm/sec ----- Left CCA: 61.6 ----- Left ICA: 98.5 ----- Left ECA: 96.3 ICA/CCA ratio: 1.6 LEFT: End Diastole cm/sec ----- Left CCA: 22.5 ----- Left ICA: 30.3 ----- Left ECA: 21.5 VERTEBRALS (direction of flow): Right Vertebral: Antegrade Left Vertebral: Antegrade Rhythm: Normal Grayscale, color Doppler, spectral Doppler imaging performed of the carotid arteries no significant s tenosis is evident. No significant stenosis seen; mild calcific plaque seen in the bilateral carotid bulbs. IMPRESSION: No hemodynamic significant stenosis of the proximal internal carotid arteries by Doppler criteria, an indirect measurement of carotid stenosis Criteria for Assigning % of Stenosis / Diameter reduction (Estimation based on the indirect measurements of the internal carotid artery velocities (ICA PSV). 1. Normal (no stenosis)=ICA PSV < 125 cm/s: ratio < 2.0: ICA EDV<40 cm/s. 2. Less than 50% stenosis=ICA PSV < 125 cm/s: ratio < 2.0: ICA EDV<40 cm/s. 3. 50 to 69% stenosis=ICA PSV of 125 to 230 cm/s: ration 2.0 ? 4.0: ICA EDV 40-100 cm/s. 4. Greater than 70% stenosis to near occlusion= ICA PSV > 230 cm/s: ratio > 4.0: ICA EDV > 100 cm/s. 5. Near occlusion= ICA PSV velocities may be low or undetectable: variable ratio and ICA EDV. 6. Total occlusion=unable to detect flow.
== END | disposition home or self-care (01) ==
LOC: RADCTMAIN 07:51
PROVIDERS: ATTEND Internal Medicine
DX: R42 Dizziness and giddiness (principal)
CPT/HCPCS: 70450; 93880

== ENCOUNTER → 2021-06-10 | Outpatient (CLI) | payer MEDICARE, OTHER ==
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
--- NOTE | 2021-06-10 10:36 | MM ---
Reason for exam: screening (asymptomatic). Last mammogram was performed 1 year and 5 months ago. History: Patient has history of other cancer at age 69. Family history of breast cancer in aunt. Took hormonal contraceptives for 8 years beginning at age 21. Physical Findings: A clinical breast exam by your physician is recommended on an annual basis and results should be correlated with mammographic findings. MG 3D Screening Mammo W/Cad Bilateral CC and MLO view(s) were taken. Prior study comparison: January 12, 2020, bilateral MG 3d screening mammo w/cad. November 22, 2018, bilateral MG 3d screening mammo w/cad. There are scattered fibroglandular densities. There are benign appearing round, linear calcifications bilaterally. There is chronic nodularity in the right breast. There is no discrete abnormality. ASSESSMENT: Benign, BI-RAD 2 RECOMMENDATION: Routine screening mammogram of both breasts in 1 year.
== END | disposition home or self-care (01) ==
LOC: RADMAMWWP 07:32
PROVIDERS: ATTEND Internal Medicine
DX: Z12.31 Encounter for screening mammogram for malignant neoplasm of breast (principal); M81.0 Age-related osteoporosis without current pathological fracture; Z80.3 Family history of malignant neoplasm of breast
CPT/HCPCS: 77063; 77067; 77080

== ENCOUNTER → 2022-07-24 | Outpatient (CLI) | payer MEDICARE, OTHER ==
--- NOTE | 2022-07-27 07:48 | MM ---
Reason for Exam: Screening (asymptomatic). Last mammogram was performed 1 year(s) and 1 month(s) ago. Patient History: Menarche at age 11. First Full-Term at age 17. Hysterectomy at age 25. Other cancer, age 69. Hormonal Contraceptives for 8 years from age 21 until age 29. Maternal aunt had breast cancer. Risk Values: Sumi 5 year model risk: 1.2%. NCI Lifetime model risk: 2.2%. Prior Study Comparison: 11/22/2018 Bilateral Screening Mammogram, [facility]. 01/12/2020 Bilateral Screening Mammogram, [facility]. 06/10/2021 Bilateral Screening Mammogram, [facility]. Tissue Density: The breast tissue is heterogeneously dense. This may lower the sensitivity of mammography. Findings: Analyzed By CAD. There is no suspicious group of microcalcifications or new suspicious mass in either breast. Overall Assessment: Negative, BI-RAD 1 Management: Screening Mammogram of both breasts in 1 year. A clinical breast exam by your physician is recommended on an annual basis and results should be correlated with mammographic findings. Electronically signed and approved by: Rolando Trejo M.D. Radiologis
== END | disposition home or self-care (01) ==
LOC: RADMAMWWP 11:29
PROVIDERS: ATTEND Family Medicine
DX: Z12.31 Encounter for screening mammogram for malignant neoplasm of breast (principal); Z80.3 Family history of malignant neoplasm of breast
CPT/HCPCS: 77067

== ENCOUNTER → 2023-03-25 | Outpatient (CLI) | payer MEDICARE ==
--- NOTE | 2023-03-25 10:15 | CT ---
EXAMINATION TYPE: CT brain wo con CT DLP: 1000.9 mGycm, Automated exposure control for dose reduction was used. DATE OF EXAM: 03/25/2023 9:54 AM COMPARISON: 04/14/2021. CLINICAL INDICATION:Female, 77 years old with history of R51.9 HEADACHE, MONTOYA TECHNIQUE: Brain: Axial CT images of the brain were obtained with coronal and sagittal reformats created and rev iewed. Contrast used: None. Oral contrast used: None. FINDINGS: Brain: Extra-axial spaces: No abnormal extra-axial fluid collections. Ventricular system: Dilatation in proportion to cerebral atrophy. Cerebral parenchyma: Cerebral atrophy. No acute intraparenchymal hemorrhage or mass effect. The wall -white junction is well differentiated. Cerebellum: Unremarkable. Mass effect: No evidence of midline shift. Intracranial vasculature: Atherosclerotic calcifications of the intracranial vessels. Soft tissues: Normal. Calvarium/osseous structures: No depressed skull fracture. Paranasal sinuses and mastoid air cells: Mild scattered paranasal sinus disease. Visualized orbits: Orbital contents are intact. IMPRESSION: 1. No acute intracranial process. 2. Nonspecific white matter changes, likely secondary to chronic small vessel ischemic disease.
[2023-03-25 15:22] LABS: Basophils # (A) 0.04 X 10*3/uL (0.00-0.10); Basophils % (A) 0.9 %; Eosinophils # (A) 0.12 X 10*3/uL (0.04-0.35); Eosinophils % (A) 2.6 %; HCT 41.7 % (37.2-46.3); HGB 13.4 g/dL (12.0-15.0); Lymphocytes # (A) 1.08 X 10*3/uL (0.90-5.00); Lymphocytes % (A) 23.1 %; MCHC 32.1 g/dL (32.0-37.0); MCV 99.5 FL (80.0-97.0); Mean Platelet Volume 9.2 FL (9.5-12.2); Monocytes # (A) 0.33 X 10*3/uL (0.20-1.00); Monocytes % (A) 7.1 %; NRBC Per 100 WBC 0 X 10*3/uL (0.00-0.01); Neutrophils # (A) 3.09 X 10*3/uL (1.80-7.70); Neutrophils % (A) 66.1 %; Platelet Count 174 X 10*3/uL (140-440); RBC 4.19 X 10*6/uL (4.10-5.20); RDW 13.5 % (11.5-14.5); WBC 4.67 X 10*3/uL (4.50-10.00)
[2023-03-25 15:46] LABS: ALT 18 U/L (8-44); AST 25 U/L (13-35); Albumin 4.1 g/dL (3.8-4.9); Albumin/Globulin Ratio 1.95 Ratio (1.60-3.17); Alkaline Phosphatase 64 U/L (41-126); BUN/Creat Ratio 14.57 Ratio (12.00-20.00); Blood Urea Nitrogen 10.2 mg/dL (9.0-27.0); Calcium 9.5 mg/dL (8.7-10.3); Carbon Dioxide 28.9 mmol/L (21.6-31.8); Chloride 103 mmol/L (96-109); Chol/HDL Ratio 3.37 Ratio; Globulin 2.1 g/dL (1.6-3.3); Glucose 89 mg/dL (70-110); LDL Cholesterol,Calculated 98.2 mg/dL (0.0-131.0); Potassium 4.2 mmol/L (3.5-5.5); Sodium 142 mmol/L (135-145); Total Bilirubin 0.8 mg/dL (0.3-1.2); Total Protein 6.2 g/dL (6.2-8.2); VLDL Calculation 16.48 mg/dL (5.00-40.00)
== END | disposition home or self-care (01) ==
LOC: RADCTMAIN 09:30
PROVIDERS: ATTEND Family Medicine
DX: Z00.00 Encounter for general adult medical examination without abnormal findings (principal); G93.89 Other specified disorders of brain; R51.9 Headache, unspecified
CPT/HCPCS: 70450; 80053; 80061; 84443; 85025

== ENCOUNTER 2023-09-28 11:41 | Emergency (ER) | payer MEDICARE ==
[2023-09-28 11:45] LABS: Glucose,Whole Blood 230 mg/dL (70-110)
[2023-09-28] MEDS ORDERED: MANNITOL 20% IV ONE (12:03)
[2023-09-28] MEDS ORDERED: SALINE IV ONE (12:03)
[2023-09-28] MEDS: levETIRAcetam IV 2,000 MG in SODIUM CHLORIDE 0.9% 250 ML IVPB ONE (12:09)
[2023-09-28 12:18] LABS: Basophils % (A) 0 %; Eosinophils % (A) 0 %; HCT 40.9 % (34.0-46.0); Lymphocytes # (A) 0.4 k/uL (1.0-4.8); Lymphocytes % (A) 4 %; MCH 32.6 pg (25.0-35.0); MCHC 31.9 g/dL (31.0-37.0); MCV 102.3 fL (80.0-100.0); Macrocytosis Slight; Mean Platelet Volume 8.2; Monocytes # (A) 0.5 k/uL (0-1.0); Monocytes % (A) 4 %; Neutrophils # (A) 10.3 k/uL (1.3-7.7); Neutrophils % (A) 91 %; Platelet Count 154 k/uL (150-450); RDW 13.1 % (11.5-15.5); WBC 11.3 k/uL (3.8-10.6)
--- NOTE | 2023-09-28 12:26 | CT ---
EXAMINATION TYPE: CT brain nirali wo con DATE OF EXAM: 09/28/2023 COMPARISON: 03/25/2023 HISTORY: unresponsive, gazing to Left CT DLP: 1328.9 mGycm, Automated exposure control for dose reduction was used. CONTRAST: Patient injected with [address] of the brain is performed utilizing 3 mm thick sections through the posterior fossa and 3 mm thick sections through the remaining calvarium. Study is performed within 24 hours of arrival to the hospital. There is a hyperdense collection within the left parietal occipital region measuring 6.4 x 4.0 x 8.7 cm compatible with acute hemorrhage. There is low density surrounding this hemorrhage compatible kei e edema. There is compression of the occipital horn lateral ventricle. Other is likely some decompres simona of the hemorrhage into the left lateral ventricle. Note is made of hemorrhage within the depende nt posterior right lateral ventricle. Hemorrhage is extending through the third ventricle and fourth ventricle. There is midline shift of 0.9 cm towards the right. There is effacement of sulci within the bilateral hemispheres. Significant temporal horn dilatation on the right is not evident. The left temporal hor n is not well visualized. No mass lesion is identified. No acute infarcts are evident. Ventricles and sulci are effaced. Paranasal sinuses and mastoid air cells within the [id number] are clear. IMPRESSIONS: 1. Large hemorrhage measuring 8.7 craniocaudal by 6.4 x 4.0 cm left parietal occipital region. This i s decompressed into the lateral ventricles with blood extending into the fourth ventricle. 2. Midline shift to the right 0.9 cm. 3. Global effacement sulci bilaterally. 4. Report was called to the emergency room physician Dr. Curry by Dr. Burns by telephone at [facility] of interpretation 1221 hours 09/28/2023 CT cervical spine. COMPARISON: None CT of the cervical spine is performed in the axial plane at 2 mm thick sections. Reconstructed image s in the coronal, and sagittal plane are reviewed on the computer. No acute fractures are evident. There is minimal retrolisthesis of C5 on C6. Posterior disc space narrowing at C5-6 is present. There is some posterior disc space narrowing at C2-3, C3-4. Vertebral body heights are preserved. No spinal canal stenosis is evident. No neural foraminal stenosis is evident. Note is made of patchy infiltrate in the posterior medial left apex. Correlate for pneumonia IMPRESSION: 1. No acute osseous abnormality cervical spine. 2. Mild retrolisthesis of C5 on C6. 3. Degenerative disc changes cervical spine. 4. Posterior left apex infiltrate. Correlate for pneumonia.
[2023-09-28 12:28] LABS: ALT 19 U/L (4-34); African American GFR (CKD) >90 (>60 ml/min/1.73 sqM); Albumin 3.8 g/dL (3.5-5.0); Anion Gap 7 mmol/L; Blood Urea Nitrogen 12 mg/dL (7-17); Calcium 8.6 mg/dL (8.4-10.2); Carbon Dioxide 27 mmol/L (22-30); Chloride 105 mmol/L (98-107); Creatine Kinase 75 U/L (30-135); Glucose 235 mg/dL (74-99); Non-African American GFR(CKD) >90 (>60 ml/min/1.73 sqM); Sodium 139 mmol/L (137-145); Total Protein 6.2 g/dL (6.3-8.2)
[2023-09-28] MEDS: MANNITOL 20% IV ONE (12:28)
[2023-09-28 12:31] LABS: AST 39 U/L (14-36); Alkaline Phosphatase 62 U/L (38-126); Potassium 3.8 mmol/L (3.5-5.1)
--- NOTE | 2023-09-28 12:31 | CT ---
EXAMINATION TYPE: CT angio head neck DATE OF EXAM: 09/28/2023 COMPARISON: None HISTORY: CODE STROKE CT DLP: 1703.5 mGycm CONTRAST: Performed without and with IV Contrast, patient injected with 65 ml mL of Isovue 370. Combination Contrast CTA cervical carotids and [place] CTA cervical carotids with 3-D recons truction Contrast CTA of the cervical carotids was performed 3-D reconstruction imaging obtained at a separate workstation. Right carotid system: Mild plaque is seen of the right common carotid artery. There is mild plaque a lso noted at the carotid bulb and proximal ICA. No significant diameter reduction. ECA is patent. Right vertebral artery appears unremarkable. Left carotid system: Mild plaque is seen of the left common carotid artery. There is mild plaque als o noted at the carotid bulb and proximal ICA. No significant diameter reduction. ECA is patent. Lef t vertebral artery appears unremarkable. IMPRESSION: 1. No significant diameter reduction to account for the patient's symptoms. CTA [place] with 3-D reconstruction Contrast CTA of the [place] was performed 3-D reconstruction imaging obtained at a separate workstation. Vertebrobasilar system as well as intracranial portions of the internal carotid arteries and their ma portia tributaries are patent. I do not see evidence for sizable aneurysm or vascular malformation. Pl ease note MRI provides greater sensitivity and specificity. Visualized brain appears grossly unremar kable. IMPRESSION: 1. No significant abnormality. NASCET criteria was used in interpretation of this exam?
[2023-09-28 12:45] LABS: Partial Thromboplastin Time 22.1 sec (22.0-30.0)
--- NOTE | 2023-09-28 12:46 | ED ---
General Adult HPI - General Chief complaint: Neuro Symptoms/Deficit Stated complaint: fall/unresponsive Time Seen by Provider: 09/28/23 11:42 Source: patient, family, EMS, RN notes reviewed, old records reviewed Mode of arrival: EMS Limitations: altered mental status - History of Present Illness Initial comments: 78-year-old female presenting as priority 1 stroke activation. Patient was found in her bedroom by family minimally responsive, having had fallen at some point. She was last noted to be well yesterday evening by the daughter. No prior history of CVA. The patient is quite healthy and lives with her son. Patient able to answer very simple questions she does report headache and is able to state her name. - Related Data Home Medications Medication Instructions Recorded Confirmed Aspirin [Adult Low Dose Aspirin EC] 81 mg PO DAILY 06/23/17 08/24/20 Levothyroxine Sodium 100 mcg PO SUTUTHSA 06/23/17 08/24/20 Sertraline [Zoloft] 50 mg PO DAILY 06/23/17 08/24/20 hydroCHLOROthiazide 12.5 mg PO DAILY 06/23/17 08/24/20 Cholecalciferol [Vitamin D3 (25 25 mcg PO DAILY 05/15/20 08/24/20 Mcg = 1000 Iu)] Cyanocobalamin (Vitamin B-12) 2,500 mcg PO DAILY 05/15/20 08/24/20 [Vitamin B-12] Levothyroxine Sodium 150 mcg PO MOWEFR 05/15/20 08/24/20 Omeprazole 20 mg PO DAILY 05/15/20 08/24/20 Potassium Chloride ER [K-Dur 10] 10 meq PO BID 05/15/20 08/24/20 Zinc 50 mg PO DAILY 05/15/20 08/24/20 ALPRAZolam [Xanax] 0.25 mg PO HS 08/24/20 08/24/20 Allergies Allergy/AdvReac Type Severity Reaction Status Date / Time peanut Allergy Anaphylaxis Verified 09/28/23 11:48 codeine AdvReac Severe Abdominal Verified 09/28/23 11:48 Pain Review of Systems ROS Statement: Those systems with pertinent positive or pertinent negative responses have been documented in the HPI. ROS Other: All systems not noted in ROS Statement are negative. Past Medical History Past Medical History: COPD, GERD/Reflux, Hypertension Additional Past Medical History / Comment(s): emphysema History of Any Multi-Drug Resistant Organisms: None Reported Past Surgical History: Hysterectomy Additional Past Surgical History / Comment(s): cataracts removal Additional Past Anesthesia/Blood Transfusion Reaction / Comment(s): states she sometimes has a hard time coming out of surgery Past Psychological History: No Psychological Hx Reported Smoking Status: Former smoker Past Alcohol Use History: None Reported Past Drug Use History: None Reported General Exam General appearance: lethargic, in distress Head exam: Present: atraumatic, normocephalic Eye exam: Present: other (Minimally reactive pupils, left gaze deviation) Neck exam: Present: other (C-collar placed by paramedics) Respiratory exam: Present: normal lung sounds bilaterally. Absent: respiratory distress, wheezes Cardiovascular Exam: Present: normal rhythm, bradycardia GI/Abdominal exam: Present: soft. Absent: distended, tenderness Neurological exam: Present: other (NIH greater than 20, hemiplegic on the right, dysarthria expressive aphasia, left word gaze, right hemineglect) Skin exam: Present: warm, dry Course Vital Signs 09/28/23 11:42 Pulse Rate 64 Respiratory 12 Rate Blood Pressure 139/118 Medical Decision Making - Medical Decision Making Was pt. sent in by a medical professional or institution (, PA, CHILD WATCH ATTENDANT, urgent care, hospital, or half-way...) When possible be specific @ -No Did you speak to anyone other than the patient for history (EMS, parent, family, police, friend...)? What history was obtained from this source @ -Patient's daughter and son as well as paramedics regarding history. Did you review nursing and triage notes (agree or disagree)? Why? @ -I reviewed and agree with nursing and triage notes Were old charts reviewed (outside hosp., previous admission, EMS record, old EKG , old radiological studies, urgent care reports/EKG's, half-way records)? Report findings @ -No old charts were reviewed Differential CVA Ischemic stroke, hemorrhagic stroke, brain tumor, atypical migraine, Wernicke's encephalopathy, seizure, multiple sclerosis, meningitis, encephalitis, hypog lycemia, Guillain-Mcguire, electrolytes disturbance, myasthenia gravis.... This is not meant to be an all-inclusive list EKG interpreted by me (3pts min.). @ -[EKG: Sinus bradycardia with PVC rate of 57, MS interval 126, QRS duration 101, QTc 394 X-rays interpreted by me (1pt min.). @ -None done CT interpreted by me (1pt min.). @CT brain shows large intracranial hemorrhage on the left side with midline shift and intraventricular extension. U/S interpreted by me (1pt. min.). @ -None done What testing was considered but not performed or refused? (CT, X-rays, U/S, labs)? Why? @ -None What meds were considered but not given or refused? Why? @ -None Did you discuss the management of the patient with other professionals (professionals i.e. , PA, CHILD WATCH ATTENDANT, lab, RT, psych nurse, social work associate, sorting and folding supervisor, teacher, inshore undersea warfare officer, continuous pillowcase cutter)? Give summary @ -This is a stroke activation, case discussed with Dr. Jose, at the onset of care, after CT imaging as well as on the robot with the patient and patient's family. Arrangements are made to transfer to [facility] Was smoking cessation discussed for >3mins.? @ -No Was critical care preformed (if so, how long)? @ -Yes, 70 minutes Were there social determinants of health that impacted care today? How? (Homelessness, low income, unemployed, alcoholism, drug addiction, transportation, low edu. Level, literacy, decrease access to med. care, usp, rehab)? @ -No Was there de-escalation of care discussed even if they declined (Discuss DNR or withdrawal of care, Hospice)? DNR status @ -No What co-morbidities impacted this encounter? (DM, HTN, Smoking, COPD, CAD, Cancer, CVA, ARF, Chemo, Hep., AIDS, mental health diagnosis, sleep apnea, morbid obesity)? @ -Hypothyroid otherwise healthy Was patient admitted / discharged? Hospital course, mention meds given and route, prescriptions, significant lab abnormalities, going to OR and other pertinent info. @ -78-year-old female presenting in extremis, hemiplegic and altered. Susp ected hemorrhagic stroke given the presentation. Patient taken immediately to CT where she receives a CT brain, cervical spine, and CT angiography of the head and neck. This shows a large left-sided intracranial hemorrhage with ventricular extension and midline shift. Dr. David is able to speak to the family about goals of care and there is a slight delay in the decision making due to deciding whether this patient will be kept comfortable or transferred to [facility] for medical management. Patient started on Cardene, given mannitol and Keppra in the emergency department. She is maintaining her airway and the family is confident that she would not want to be on a ventilator. Undiagnosed new problem with uncertain prognosis? @ -No Drug Therapy requiring intensive monitoring for toxicity (Heparin, Nitro, Insulin, Cardizem)? @ -No Were any procedures done? @ -No Diagnosis/symptom? @ -Intracranial hemorrhage, hemorrhagic stroke Acute, or Chronic, or Acute on Chronic? @ -[Acute Uncomplicated (without systemic symptoms) or Complicated (systemic symptoms)? @ -Default Side effects of treatment? @ -No Exacerbation, Progression, or Severe Exacerbation? @ -No Poses a threat to life or bodily function? How? (Chest pain, USA, PR, pneumonia, PE, COPD, DKA, ARF, appy, cholecystitis, CVA, Diverticulitis, Homicidal, Suicidal, threat to staff... and all critical care pts) @ -Yes, hemorrhagic stroke, - Lab Data Result diagrams: 09/28/23 11:43 09/28/23 11:43 Lab Results 09/28/23 09/28/23 09/28/23 Range/Units 11:43 11:43 11:43 WBC 11.3 H (3.8-10.6) k/uL RBC 4.00 (3.80-5.40) m/uL Hgb 13.0 (11.4-16.0) gm/dL Hct 40.9 (34.0-46.0) % MCV 102.3 H (80.0-100.0) fL MCH 32.6 (25.0-35.0) pg MCHC 31.9 (31.0-37.0) g/dL RDW 13.1 (11.5-15.5) % Plt Count 154 (150-450) k/uL MPV 8.2 Neutrophils % 91 % Lymphocytes % 4 % Monocytes % 4 % Eosinophils % 0 % Basophils % 0 % Neutrophils # 10.3 H (1.3-7.7) k/uL Lymphocytes # 0.4 L (1.0-4.8) k/uL Monocytes # 0.5 (0-1.0) k/uL Eosinophils # 0.0 (0-0.7) k/uL Basophils # 0.0 (0-0.2) k/uL Macrocytosis Slight PT 11.0 (10.0-12.5) sec INR 1.0 (<1.2) APTT 22.1 (22.0-30.0) sec Sodium 139 (137-145) mmol/L Potassium 3.8 (3.5-5.1) mmol/L Chloride 105 (98-107) mmol/L Carbon Dioxide 27 (22-30) mmol/L Anion Gap 7 mmol/L BUN 12 (7-17) mg/dL Creatinine 0.38 L (0.52-1.04) mg/dL Est GFR (CKD-EPI)AfAm >90 (>60 ml/min/1.73 sqM) Est GFR (CKD-EPI)NonAf >90 (>60 ml/min/1.73 sqM) Glucose 235 H (74-99) mg/dL POC Glucose (mg/dL) (70-110) mg/dL POC Glu Synthetic Department Supervisor ID Calcium 8.6 (8.4-10.2) mg/dL Total Bilirubin 1.0 (0.2-1.3) mg/dL AST 39 H (14-36) U/L ALT 19 (4-34) U/L Alkaline Phosphatase 62 (38-126) U/L Creatine Kinase 75 (30-135) U/L Troponin I (0.000-0.034) ng/mL Total Protein 6.2 L (6.3-8.2) g/dL Albumin 3.8 (3.5-5.0) g/dL 09/28/23 09/28/23 Range/Units 11:43 11:43 WBC (3.8-10.6) k/uL RBC (3.80-5.40) m/uL Hgb (11.4-16.0) gm/dL Hct (34.0-46.0) % MCV (80.0-100.0) fL MCH (25.0-35.0) pg MCHC (31.0-37.0) g/dL RDW (11.5-15.5) % Plt Count (150-450) k/uL MPV Neutrophils % % Lymphocytes % % Monocytes % % Eosinophils % % Basophils % % Neutrophils # (1.3-7.7) k/uL Lymphocytes # (1.0-4.8) k/uL Monocytes # (0-1.0) k/uL Eosinophils # (0-0.7) k/uL Basophils # (0-0.2) k/uL Macrocytosis PT (10.0-12.5) sec INR (<1.2) APTT (22.0-30.0) sec Sodium (137-145) mmol/L Potassium (3.5-5.1) mmol/L Chloride (98-107) mmol/L Carbon Dioxide (22-30) mmol/L Anion Gap mmol/L BUN (7-17) mg/dL Creatinine (0.52-1.04) mg/dL Est GFR (CKD-EPI)AfAm (>60 ml/min/1.73 sqM) Est GFR (CKD-EPI)NonAf (>60 ml/min/1.73 sqM) Glucose (74-99) mg/dL POC Glucose (mg/dL) 230 H (70-110) mg/dL POC Glu Synthetic Department Supervisor ID Margarita Rea Calcium (8.4-10.2) mg/dL Total Bilirubin (0.2-1.3) mg/dL AST (14-36) U/L ALT (4-34) U/L Alkaline Phosphatase (38-126) U/L Creatine Kinase (30-135) U/L Troponin I 0.046 H* (0.000-0.034) ng/mL Total Protein (6.3-8.2) g/dL Albumin (3.5-5.0) g/dL Critical Care Time Critical Care Time: Yes Total Critical Care Time: 70 Disposition Clinical Impression: Cerebrovascular accident (CVA), ICH (intracerebral hemorrhage) Disposition: OTHER INSTITUTION NOT DEFINED Condition: Serious Is patient prescribed a controlled substance at d/c from ED?: No Referrals: Tray Matias MD [Primary Care Provider] - 1-2 days Time of Disposition: 12:35 - Out of Hospital Transfer - Req. Specs Out of Hospital Transfer - Requested Specifics: Other Emergency Center (Transfer to [facility])
[2023-09-28] MEDS ORDERED: SODIUM CHLORIDE 0.9% 1,000 ML IV SCH (13:15)
[2023-09-28] MEDS: niCARdipine 20 MG in SODIUM CHLORIDE 0.9% 192 ML IV SCH (13:21)
[2023-09-28 15:36] VITALS: BP 141/63; PULSE 72; RESP 18
== END 2023-09-28 13:35 | disposition other institution (70) ==
LOC: EC 11:41
DX: I63.9 Cerebral infarction, unspecified (principal); I61.9 Nontraumatic intracerebral hemorrhage, unspecified; Z91.010 Allergy to peanuts; Z88.5 Allergy status to narcotic agent; Z87.891 Personal history of nicotine dependence
CPT/HCPCS: 36415; 93005; 80053; 82550; 84484; 85025; 85610; 85730; 72125; 70496; 70450; 70498; 99291; 96365; 96368; 96375; J1953; Q9967